=== PATIENT | female | born 1970 | race Caucasian/White ===

== ENCOUNTER → 2017-01-19 | Outpatient (CLI) | payer BC ==
--- NOTE | 2017-01-20 07:35 | MAMMOGRAPHY REPORT ---
BILATERAL DIGITAL SCREENING MAMMOGRAM TOMOSYNTHESIS WITH CAD: 01/19/2017 CLINICAL HISTORY: Routine screening. Patient has no complaints. TECHNIQUE: Breast tomosynthesis in addition to standard 2D mammography was performed. Current study was also evaluated with a Computer Aided Detection (CAD) system. COMPARISON: Comparison is made to exams dated: 11/13/2014 mammogram, 01/17/2016 mammogram, 01/04/2012 ultrasound, 11/10/2013 mammogram, 07/02/2011 mammogram, and 07/02/2011 ultrasound - [facility]. BREAST COMPOSITION: The tissue of both breasts is heterogeneously dense, which may obscure small mas ses. FINDINGS: The glandular pattern is similar to prior mammograms, with stable asymmetries bilaterally. No new suspicious mass, architectural distortion or cluster of microcalcifications is seen. IMPRESSION: ACR BI-RADS CATEGORY 1: NEGATIVE There is no mammographic evidence of malignancy. A 1 year screening mammogram is recommended. The pa tient will receive written notification of the results. Approximately 10% of breast cancers are not detected with mammography. A negative mammographic report should not delay biopsy if a clinically suggestive mass is present. Carol Zurita M.D. ay/:01/19/2017 17:18:04 Delivery Stock Clerk: Savannah RAMOSR, M, [facility] letter sent: Normal 1/2 BI-RADS Code: ACR BI-RADS Category 1: Negative
== END | disposition home or self-care (01) ==
LOC: C.MAMM 08:28
PROVIDERS: ATTEND Obstetrics & Gynecology
DX: Z12.31 Encounter for screening mammogram for malignant neoplasm of breast (principal)

== ENCOUNTER 2021-11-13 09:42 | Inpatient (IN) ==
[2021-11-13] MEDS ORDERED: ONDANSETRON INJ 2 MG/ML 2 ML VIAL IV STA ×2 (10:30→10:56)
--- NOTE | 2021-11-13 10:40 | Emergency Department Note ---
Impression & Plan SBO (small bowel obstruction), Abdominal pain, Nausea and vomiting ED Provider Note NAME: JOSE LAMAS AGE: 51 SEX: F : 1970 ARRIVES VIA: Walk-In INFORMANT: Patient, ED PROVIDER(S): Tyler Roberts MD Chief Complaint: Abdominal pain, nausea vomiting HPI: Patient presents due to concern for abdominal pain with associated nausea and vomiting that began last evening. Patient denies any chest pains or shortness of breath. No recent sick contacts or travel. Patient does have COVID but she has been tested several times in the last week but without any symptoms and the patient has been negative. Patient denies any blood in the vomit. Patient Nuys any alcohol or tobacco use. The patient's had a recent bowel movement denies any dysuria or blood in the stool. No hematuria no history of kidney stones. Patient denies any falls or trauma. Patient did try some Tylenol as well as some Zofran and had some mild improvement in symptoms. ROS: See HPI for pertinent positives and negatives. A total of 10 systems were reviewed and otherwise negative. Past medical history: See below Surgical history: See below Social history: See below Physical Exam: GENERAL: NAD, wearing a mask, non-toxic. EYE EXAM: Normal conjunctiva. PERRL, no anisocoria and EOM's grossly intact w/o pain. NECK: Supple, no nuchal rigidity, no adenopathy, non-tender. No signs of meningismus. FROM of the neck with good chin to chest and neck extension. No stridor. LUNGS: Clear to auscultation. Normal chest wall mechanics. HEART: NSR, no MRG. ABDOMEN: Abdomen soft, upper abdominal pain without lower abdominal pain, neg ative obturators and psoas, normo-active bowel sounds, no masses, no rebound or guarding. BACK: No CVA TTP. SKIN: No rashes and no bruising. UPPER EXTREMITIES: Upper extremities are grossly normal. LOWER EXTREMITIES: Grossly normal, no edema. NEURO EXAM: A&O x3, cranial nerves II-XII grossly intact, normal speech, moves all 4 extremities. Differential diagnoses: Appendicitis, ovarian cyst, ovarian torsion, ectopic , TOA, PID, infections, diverticulitis, UTI, obstruction, mesenteric i schemia, aortic pathology, inflammatory bowel disease, renal colic, PUD, pancreatitis, biliary pathology, hernia, volvulus, constipation, as well as other pathologies. Course: Patient was seen and evaluated the bedside. Full history physical exam was performed. Imaging Studies: See Below Cardiac monitoring: An order was placed for continuous cardiac monitoring. The monitor shows a rate of 67 with sinus rhythm. MDM: Patient presents due to concern for abdominal pain with associated nausea and vomiting. The patient did have blood work completed. No prior history of abdominal surgeries. The patient was initially given antiemetics and IV fluids along with a screening x-ray. I did discuss that if her blood work looked concerning or her x-ray or she did not have improvement in symptoms we talked about obtaining a CAT scan. The patient is comfortable with this plan of care. Patient has a normal white count H&H and platelet count. The patient's kidney function is unremarkable. Mild hypercalcemia 10.2. Mild hypokalemia 3.3. Urinalysis did not show evidence of obvious infection but ketones are present consistent with the patient's likely dehydration. COVID-negative. Patient's plain film shows no acute process within the chest. The patient does have nondilated gas-filled loops of small bowel which contain small fluid levels. This may be seen in mild gastroenteritis versus ileus or even a partial small bowel obstruction. Given the patient's lack of any prior surgical history I did discuss these findings. The patient was trialed on additional medications but did not have improvement and thus a CT of the abdomen pelvis was obtained. CT abdomen pelvis did show c oncern for small bowel obstruction. I did speak the on-call general surgeon Dr. Ricks and the patient was admitted to the surgical service. Do not believe the patient requires an NG tube at this time as the patient has had no further vomiting since presenting here in the emergency department. Past Med/Surg History Medical History Acute medial meniscus tear of left knee IBS (irritable bowel syndrome) Patellofemoral arthralgia of left knee Family History Mother Breast cancer Aunt Breast cancer Aunt Breast cancer Social History Smoking Status: Never smoker Feels Safe at Home: Yes Allergies Allergies Allergy/AdvReac Type Severity Reaction Status Date / Time Sulfa (Sulfonamide Allergy Mild rash Verified 04/29/21 16:04 Antibiotics) Home Meds Home Medications Medication Instructions Recorded Confirmed multivitamin 1 tab PO DAILY 11/05/18 04/29/21 omeprazole 20 mg capsule,delayed 20 mg PO DAILY 04/29/21 04/29/21 release Results & Data (ED) Vital Signs Vital Signs - 24 hr 11/13/21 10:13 11/13/21 12:55 11/13/21 15:21 Temperature 36.3 C L Temperature Source Temporal Artery Scan Pulse Rate 68 Pulse Rate [Right Finger] 62 Respiratory Rate 20 16 20 Respiratory Effort / Characteristics Non-Labored Non-Labored Respiratory Depth Normal Normal Respiratory Pattern Regular Blood Pressure 125/85 Blood Pressure [Left Arm] 112/66 Blood Pressure Mean 98 Blood Pressure Mean [Left Arm] 81 Pulse Oximetry 100 99 98 Oxygen Delivery Method Room Air Room Air Room Air Sepsis Recent Fever Within 48 Hours No Sepsis New/Unexplained Change in Mental Status N/A Sepsis Action Taken by Nursing No Action Required Home Medications Current Medication List: was personally reviewed by me Laboratory Data Attestation: I reviewed the patient's lab results. Result diagrams: 11/13/21 10:55 11/13/21 10:55 Lab Results 11/13/21 11/13/21 11/13/21 Range/Units 10:55 10:55 10:55 WBC 8.22 (4.8-10.8) K/ul RBC 4.75 (3.93-5.22) M/uL Hgb 14.5 (12.0-16.0) g/dl Hct 40.9 (34.1-44.9) % MCV 86.1 (80.0-100.0) fL MCH 30.5 (25.0-34.0) pg MCHC 35.5 (32.0-36.0) g/dL RDW Std Deviation 38.3 (36.4-46.3) fL RDW Coeff of Esperanza 12.3 (11.5-14.5) % Plt Count 238 (130-400) K/uL MPV 9.3 L (9.4-12.3) fL Immature Gran % (Auto) 0.6 % Neut % (Auto) 91.2 % Lymph % (Auto) 5.4 % [place] % (Auto) 2.6 % Eos % (Auto) 0.0 % Baso % (Auto) 0.2 % Neut # (Auto) 7.50 H (1.4-6.5) K/uL Lymph # (Auto) 0.44 L (1.2-3.4) K/uL [place] # (Auto) 0.21 L (0.24-0.82) K/uL Eos # (Auto) 0.00 (0-0.50) K/uL Baso # (Auto) 0.02 (0-0.2) K/uL Immature Gran # (Auto) 0.05 H (0.00-0.02) K/uL Sodium 137 (136-145) mmol/L Potassium 3.3 L (3.5-5.1) mmol/L Chloride 101 (98-107) mmol/L Carbon Dioxide 24 (21-32) mmol/L Anion Gap 12 H (3-11) BUN 10 (6-23) mg/dl Creatinine 0.80 (0.6-1.2) mg/dl Est Cr Clr Drug Dosing 77.3 ml/min Est GFR ( Amer) 98.2 ml/min Est GFR (Non-Af Amer) 84.8 ml/min BUN/Creatinine Ratio 12.5 (10-20) Glucose 128 H (70-99(Fasting)) mg/dl Calcium 10.2 H (8.5-10.1) mg/dl Total Bilirubin 0.9 (0.2-1.0) mg/dl AST 17 (13-39) U/L ALT 10 (7-52) U/L Alkaline Phosphatase 82 (34-104) U/L Total Protein 8.7 H (6.0-8.3) gm/dl Albumin 4.8 (3.4-5.0) gm/dl Globulin 3.9 (2.5-4.0) gm/dl Albumin/Globulin Ratio 1.2 (0.9-2) Lipase 39 (11-82) U/L Urine Color Yellow Urine Appearance Cloudy A (Clear) Urine pH >= 9.0 H (4.5-7.5) Ur Specific [place] 1.030 (1.000-1.030) Urine Protein 1+ H (Negative) Urine Glucose (UA) Negative (Negative) Urine Ketones 3+ H (Negative) Urine Blood Negative (Negative) Urine Nitrite Negative (Negative) Urine Bilirubin Negative (Negative) Urine Urobilinogen Negative (Negative) Ur Leukocyte Esterase Negative (Negative) Urine WBC (Auto) 1-5 (0-5) /hpf Urine RBC (Auto) 0-4 (0-4) /hpf U Hyaline Cast (Auto) 10-30 H (0-5) /lpf U Epithel Cells (Auto) >30 H (0-5) /lpf Urine Bacteria (Auto) Negative (Negative) Ur Renal Epithelial Cell 0-5 (0-5) /lpf SARS-CoV-2, RNA, NAAT (NEGATIVE) 11/13/21 Range/Units 12:23 WBC (4.8-10.8) K/ul RBC (3.93-5.22) M/uL Hgb (12.0-16.0) g/dl Hct (34.1-44.9) % MCV (80.0-100.0) fL MCH (25.0-34.0) pg MCHC (32.0-36.0) g/dL RDW Std Deviation (36.4-46.3) fL RDW Coeff of Esperanza (11.5-14.5) % Plt Count (130-400) K/uL MPV (9.4-12.3) fL Immature Gran % (Auto) % Neut % (Auto) % Lymph % (Auto) % [place] % (Auto) % Eos % (Auto) % Baso % (Auto) % Neut # (Auto) (1.4-6.5) K/uL Lymph # (Auto) (1.2-3.4) K/uL [place] # (Auto) (0.24-0.82) K/uL Eos # (Auto) (0-0.50) K/uL Baso # (Auto) (0-0.2) K/uL Immature Gran # (Auto) (0.00-0.02) K/uL Sodium (136-145) mmol/L Potassium (3.5-5.1) mmol/L Chloride (98-107) mmol/L Carbon Dioxide (21-32) mmol/L Anion Gap (3-11) BUN (6-23) mg/dl Creatinine (0.6-1.2) mg/dl Est Cr Clr Drug Dosing ml/min Est GFR ( Amer) ml/min Est GFR (Non-Af Amer) ml/min BUN/Creatinine Ratio (10-20) Glucose (70-99(Fasting)) mg/dl Calcium (8.5-10.1) mg/dl Total Bilirubin (0.2-1.0) mg/dl AST (13-39) U/L ALT (7-52) U/L Alkaline Phosphatase (34-104) U/L Total Protein (6.0-8.3) gm/dl Albumin (3.4-5.0) gm/dl Globulin (2.5-4.0) gm/dl Albumin/Globulin Ratio (0.9-2) Lipase (11-82) U/L Urine Color Urine Appearance (Clear) Urine pH (4.5-7.5) Ur Specific [place] (1.000-1.030) Urine Protein (Negative) Urine Glucose (UA) (Negative) Urine Ketones (Negative) Urine Blood (Negative) Urine Nitrite (Negative) Urine Bilirubin (Negative) Urine Urobilinogen (Negative) Ur Leukocyte Esterase (Negative) Urine WBC (Auto) (0-5) /hpf Urine RBC (Auto) (0-4) /hpf U Hyaline Cast (Auto) (0-5) /lpf U Epithel Cells (Auto) (0-5) /lpf Urine Bacteria (Auto) (Negative) Ur Renal Epithelial Cell (0-5) /lpf SARS-CoV-2, RNA, NAAT NEGATIVE (NEGATIVE) Administered Medications Discontinued Medications Dicyclomine HCl (Dicyclomine Hcl 10 Mg/Ml 2 Ml Amp/Vial) 20 mg IM NOW ONE Stop: 11/13/21 12:01 Last Admin: 11/13/21 12:18 Dose: 20 mg Documented By: ANN Diphenhydramine HCl (Diphenhydramine 50 Mg/Ml Vial) 25 mg IV NOW STA Stop: 11/13/21 13:43 Last Admin: 11/13/21 14:07 Dose: 25 mg Documented By: DEXTER Sodium Chloride (Nss 1000ml) 1,000 mls @ 999 mls/hr IV .Q1H1M STA Stop: 11/13/21 11:56 Last Infusion: 11/13/21 12:26 Dose: 0 mls/hr Documented By: Admin: 11/13/21 11:14 Dose: 999 mls/hr Documented By: JACQUI Famotidine (Pepcid 20mg Iv Push) 20 mg in 5 mls @ 2.5 mls/min IV NOW STA Stop: 11/13/21 12:01 Last Admin: 11/13/21 12:18 Dose: 2.5 mls/min Documented By: ANN Sodium Chloride (Nss 1000ml) 1,000 mls @ 999 mls/hr IV .Q1H1M ONE Stop: 11/13/21 13:00 Last Infusion: 11/13/21 13:21 Dose: 0 mls/hr Documented By: Admin: 11/13/21 12:19 Dose: 999 mls/hr Documented By: ANN Prochlorperazine (Compazine) 2 mls @ 1 mls/min IV ONE ONE Stop: 11/13/21 13:43 Last Admin: 11/13/21 14:07 Dose: 1 mls/min Documented By: DEXTER Ioversol (Ioversol 350 Mg 100ml Prefilled Syringe) 93 ml IV ONCE ONE Stop: 11/13/21 14:31 Last Admin: 11/13/21 14:31 Dose: 93 ml Documented By: ISABEL Ketorolac Tromethamine (Ketorolac Tromethamine 15 Mg/Ml Vial) 10 mg IV NOW STA Stop: 11/13/21 10:57 Last Admin: 11/13/21 11:10 Dose: 10 mg Documented By: JACQUI Morphine Sulfate (Morphine Sulfate 4 Mg/Ml 1 Ml Carp\Vial) 4 mg IV NOW STA Stop: 11/13/21 15:38 Last Admin: 11/13/21 15:42 Dose: 4 mg Documented By: LAURY Ondansetron HCl (Ondansetron Inj 2 Mg/Ml 2 Ml Vial) 4 mg IV NOW STA Stop: 11/13/21 10:31 Last Admin: 11/13/21 11:37 Dose: Not Given Documented By: JACQUI Ondansetron HCl (Ondansetron Inj 2 Mg/Ml 2 Ml Vial) 4 mg IV NOW STA Stop: 11/13/21 10:57 Last Admin: 11/13/21 11:10 Dose: 4 mg Documented By: JACQUI Imaging Data Radiologist's Impression: Chest/Abdomen X-ray 11/13/21 10:56 CHEST AND ABDOMEN 2 VIEWS HISTORY: upper ab pain, n/v COMPARISON: None. FINDINGS: The lungs are clear. The heart is normal in size. No pleural effusions. No pneumothorax. There are few nondilated gas-filled loops of small bowel within the left side the abdomen which contain small fluid levels. There are 2 stones within the upper pole the left kidney with the largest measuring 3 mm. Small to moderate amount of well-formed stool seen within the colon. No pneumoperitoneum. No pneumatosis. IMPRESSION: 1. No acute process within the chest. 2. A few nondilated gas-filled loops of small bowel within the left side of the abdomen which contain small fluid levels. This can be seen in the setting of a mild gastroenteritis or ileus. A partial small bowel obstruction is considered less likely but not entirely excluded. 3. Left-sided nephrolithiasis. ACT 112: Negative or not required by law. Electronically signed by: Chaim Cotter M.D. 11/13/2021 1:01 PM Abdomen/Pelvis CT 11/13/21 14:08 CT SCAN OF THE ABDOMEN AND PELVIS WITH IV CONTRAST CLINICAL HISTORY: Upper abdominal pain COMPARISON STUDY: Abdominal radiographs dated 11/13/2021. TECHNIQUE: Following the IV administration of 93 cc of Optiray 350, CT scan of the abdomen and pelvis is performed from the lung bases to the proximal femora. Images are reviewed in the axial, sagittal, and coronal planes. IV contrast was administered without complication. A dose lowering technique was utilized adhering to the principles of ALARA. CT DOSE: 336.52 mGycm FINDINGS: Lung bases: The heart is normal in size and without pericardial effusion. The lung bases are clear. Liver: The contrast-enhanced liver is normal in size, contour, and attenuation. There is no intrahepatic biliary ductal dilatation. The hepatic veins and portal veins are patent. Gallbladder: Unremarkable. Spleen: Normal in size and attenuation. Pancreas: Unremarkable. Adrenal glands: Unremarkable. Kidneys: The contrast enhanced kidneys are normal in size and without hydronephrosis. The kidneys enhance symmetrically. There are at least 2 nonobstructing left renal calculi which measure up to 5 mm. Bilateral renal cysts measure up to 1.8 cm. Additional subcentimeter cortical hypodensities also likely represent cysts but are too small for definitive characterization. Abdominal vasculature: The abdominal aorta is normal in course and caliber. Bowel: The proximal small bowel loops are distended and fluid-filled measuring up to 3.0 cm diameter. There is a focally thick-walled bowel loop in the central pelvis on image #274. There is a transition point just proximal to this loop on image #240, the appearance is consistent with a small bowel obstruction. The distal small bowel is decompressed. There is trace interloop fluid. No pneuma tosis intestinalis or portal venous gas is seen. Fecal retention is noted throughout the colon. The appendix is well-visualized and normal. Peritoneum: There is no intraperitoneal free air or abdominal ascites. Lymphadenopathy: None. Pelvic viscera: The bladder is partially decompressed and appears circumferentially thick walled. The uterus and adnexa are normal as visualized. Follicles are present in the ovaries. There is a moderate volume of free fluid in cul-de-sac. Skeletal structures: No lytic or blastic lesions are seen. Degenerative change is noted in the sacroiliac joints. IMPRESSION: 1. Findings are consistent with a small bowel obstruction. A transition point is identified involving a loop of small bowel in the right lower quadrant. 2. There is a short segment of thick-walled small bowel seen below the transition point. It is unclear if the inflamed small bowel loop represents the cause of obstruction, or if this is related to adhesions. 3. There is trace interloop fluid and a moderate volume of free fluid in the pelvis. 4. No intraperitoneal free air seen. There is no pneumatosis intestinalis or portal venous gas. 5. The bladder wall appears circumferentially thickened. Correlate with urinalys is. 6. Left-sided nephrolithiasis. 7. Additional findings as above. ACT 112: Negative or not required by law. Electronically signed by: Pepe Perez M.D. 11/13/2021 2:48 PM Discharge Plan Visit Data Chief Complaint: Vomiting Stated Complaint: VOMITING,ABD PAIN ED Provider: Tyler Roberts Discharge Problem: SBO (small bowel obstruction), Abdominal pain, Nausea and vomiting Patient Disposition: Admitted As Inpatient Forms [facility] Prescriptions Prescriptions: No Action omeprazole 20 mg capsule,delayed release(DR/EC) 20 mg PO DAILY multivitamin tablet 1 tab PO DAILY Referrals Referrals: Lucy Webb DO [Primary Care Provider] -
[2021-11-13] MEDS ORDERED: SODIUM CHLORIDE 0.9% 1000ML 1,000 ML IV STA (10:56)
[2021-11-13] MEDS ORDERED: KETOROLAC TROMETHAMINE 15 MG/ML VIAL IV STA (10:56)
[2021-11-13 11:11] LABS: Hematocrit (blood only) 40.9 % (34.1-44.9); Hemoglobin 14.5 g/dl (12.0-16.0); Mean Corpuscular Hemoglobin 30.5 pg (25.0-34.0); Mean Corpuscular Hgb Conc 35.5 g/dL (32.0-36.0); Mean Corpuscular Volume 86.1 fL (80.0-100.0); Mean Platelet Volume 9.3 fL (9.4-12.3); Platelet Count 238 K/uL (130-400); RDW Coefficient of Variation 12.3 % (11.5-14.5); RDW Standard Deviation 38.3 fL (36.4-46.3); Red Blood Count 4.75 M/uL (3.93-5.22); White Blood Count 8.22 K/ul (4.8-10.8)
[2021-11-13 11:32] LABS: Basophils # (auto) 0.02 K/uL (0-0.2); Basophils % (auto) 0.2 %; Immature Granulocytes # (auto) 0.05 K/uL (0.00-0.02); Immature Granulocytes % (auto) 0.6 %; Lymphocytes # (auto) 0.44 K/uL (1.2-3.4); Lymphocytes % (auto) 5.4 %; Monocytes # (auto) 0.21 K/uL (0.24-0.82); Monocytes % (auto) 2.6 %; Neutrophils % (auto) 91.2 %
[2021-11-13 11:34] LABS: Albumin Globulin Ratio 1.2 (0.9-2); Albumin Level 4.8 gm/dl (3.4-5.0); BUN Creatinine Ratio 12.5 (10-20); Bilirubin,Total 0.9 mg/dl (0.2-1.0); Calcium 10.2 mg/dl (8.5-10.1); Creatinine Clr Calc Pharmacy 77.3 ml/min; Est GFR (African American) 98.2 ml/min; Est GFR (Non-African American) 84.8 ml/min; Globulin 3.9 gm/dl (2.5-4.0); Potassium 3.3 mmol/L (3.5-5.1); Total Protein 8.7 gm/dl (6.0-8.3)
[2021-11-13 11:54] LABS: Appearance Urine Cloudy (Clear); Bacteria Urine Automated Negative (Negative); Bilirubin Urine Negative (Negative); Blood Urine Negative (Negative); Color Urine Yellow; Epithelial Cell Urine Auto >30 /lpf (0-5); Glucose Urine UA Negative (Negative); Ketones Urine 3+ (Negative); Leukocyte Esterase Urine Negative (Negative); Nitrite Urine Negative (Negative); RBC Urine Automated 0-4 /hpf (0-4); Urobilinogen Urine Negative (Negative); pH Urine >= 9.0 (4.5-7.5)
[2021-11-13 11:55] LABS: Protein Urine 1+ (Negative)
[2021-11-13] MEDS ORDERED: DICYCLOMINE HCL 10 MG/ML 2 ML AMP/VIAL IM ONE (12:00)
[2021-11-13] MEDS ORDERED: SODIUM CHLORIDE 0.9% 1000ML 1,000 ML IV ONE (12:00)
[2021-11-13] MEDS ORDERED: FAMOTIDINE 20MG IV PUSH 20 MG/5 ML SYR IV STA (12:00)
[2021-11-13 12:33] LABS: Renal Epithelial Cells Urine 0-5 /lpf (0-5)
--- NOTE | 2021-11-13 13:02 | XRay Report ---
CHEST AND ABDOMEN 2 VIEWS HISTORY: upper ab pain, n/v COMPARISON: None. FINDINGS: The lungs are clear. The heart is normal in size. No pleural effusions. No pneumothorax. Th ere are few nondilated gas-filled loops of small bowel within the left side the abdomen which contain small fluid levels. There are 2 stones within the upper pole the left kidney with the largest measur ing 3 mm. Small to moderate amount of well-formed stool seen within the colon. No pneumoperitoneum. N o pneumatosis. IMPRESSION: 1. No acute process within the chest. 2. A few nondilated gas-filled loops of small bowel within the left side of the abdomen which contain small fluid levels. This can be seen in the setting of a mild gastroenteritis or ileus. A partial sm all bowel obstruction is considered less likely but not entirely excluded. 3. Left-sided nephrolithiasis. ACT 112: Negative or not required by law. Electronically signed by: Chaim Cotter M.D. 11/13/2021 1:01 PM
[2021-11-13] MEDS ORDERED: PROCHLORPERAZINE 2 ML IV ONE (13:42)
[2021-11-13] MEDS ORDERED: diphenhydrAMINE 50 MG/ML VIAL IV STA (13:42)
[2021-11-13] MEDS ORDERED: IOVERSOL 350 MG 100mL Prefilled Syringe IV ONE (14:30)
--- NOTE | 2021-11-13 14:49 | CT Scan Report ---
CT SCAN OF THE ABDOMEN AND PELVIS WITH IV CONTRAST CLINICAL HISTORY: Upper abdominal pain COMPARISON STUDY: Abdominal radiographs dated 11/13/2021. TECHNIQUE: Following the IV administration of 93 cc of Optiray 350, CT scan of the abdomen and pelvi s is performed from the lung bases to the proximal femora. Images are reviewed in the axial, sagittal , and coronal planes. IV contrast was administered without complication. A dose lowering technique wa s utilized adhering to the principles of ALARA. CT DOSE: 336.52 mGycm FINDINGS: Lung bases: The heart is normal in size and without pericardial effusion. The lung bases are clear. Liver: The contrast-enhanced liver is normal in size, contour, and attenuation. There is no intrahepa tic biliary ductal dilatation. The hepatic veins and portal veins are patent. Gallbladder: Unremarkable. Spleen: Normal in size and attenuation. Pancreas: Unremarkable. Adrenal glands: Unremarkable. Kidneys: The contrast enhanced kidneys are normal in size and without hydronephrosis. The kidneys enh ance symmetrically. There are at least 2 nonobstructing left renal calculi which measure up to 5 mm. Bilateral renal cysts measure up to 1.8 cm. Additional subcentimeter cortical hypodensities also like ly represent cysts but are too small for definitive characterization. Abdominal vasculature: The abdominal aorta is normal in course and caliber. Bowel: The proximal small bowel loops are distended and fluid-filled measuring up to 3.0 cm diameter. There is a focally thick-walled bowel loop in the central pelvis on image #274. There is a transitio n point just proximal to this loop on image #240, the appearance is consistent with a small bowel obs truction. The distal small bowel is decompressed. There is trace interloop fluid. No pneumatosis inte stinalis or portal venous gas is seen. Fecal retention is noted throughout the colon. The appendix is well-visualized and normal. Peritoneum: There is no intraperitoneal free air or abdominal ascites. Lymphadenopathy: None. Pelvic viscera: The bladder is partially decompressed and appears circumferentially thick walled. The uterus and adnexa are normal as visualized. Follicles are present in the ovaries. There is a moderat e volume of free fluid in cul-de-sac. Skeletal structures: No lytic or blastic lesions are seen. Degenerative change is noted in the sacroi liac joints. IMPRESSION: 1. Findings are consistent with a small bowel obstruction. A transition point is identified involving a loop of small bowel in the right lower quadrant. 2. There is a short segment of thick-walled small bowel seen below the transition point. It is unclea r if the inflamed small bowel loop represents the cause of obstruction, or if this is related to adhe sions. 3. There is trace interloop fluid and a moderate volume of free fluid in the pelvis. 4. No intraperitoneal free air seen. There is no pneumatosis intestinalis or portal venous gas. 5. The bladder wall appears circumferentially thickened. Correlate with urinalysis. 6. Left-sided nephrolithiasis. 7. Additional findings as above. ACT 112: Negative or not required by law. Electronically signed by: Pepe Perez M.D. 11/13/2021 2:48 PM
[2021-11-13] MEDS ORDERED: MoRPHine SULFATE 4 MG/ML 1 ML CARP\\VIAL IV STA (15:37)
--- NOTE | 2021-11-13 17:16 | History & Physical Report ---
Date of Service November 13, 2021 Assessment & Plan (1) SBO (small bowel obstruction): (2) Abdominal pain: (3) Nausea and vomiting: Plan 51-year-old female presented to the emergency room with onset of abdominal pain that started last evening around 6 PM with associated chills, nausea, and [address] scan of the abdomen and pelvis showing signs of a small bowel obstruction with a short segment of thick-walled small bowel distal to a transition zone. Patient has never had any history of abdominal surgeries. Etiology of the small bowel obstruction could be infectious/inflammatory versus possible scar tissue even though she has never had any prior surgery. She is currently hemodynamically stable, no leukocytosis, no peritonitis on exam. Plan: Dr. Ricks discussed CT scan findings with patient and her . Definitive etiology of her small bowel obstruction is unknown but it looks like she may have an infectious inflammatory process as possible cause of her small bowel obstruction based on CT scan findings. As her exam is relatively benign other than some tenderness in the upper abdomen with no peritonitis would suggest conservative management with close observation with bowel rest, IV fluids, IV pain medication as needed, IV antiemetics as needed. Will keep n.p.o. Repeat a.m. labs Could consider a small bowel follow-through versus MR enterography for further evaluation pending clinical improvement. Patient was seen and examined in collaboration with Dr. Ricks. Please see addendum for further recommendations and plan. History of Present Illness Chief Complaint: Abdominal pain with nausea and vomiting Primary Care Provider: Lucy Webb DO Amaro is a pleasant 51-year-old female who presented to the emergency room due to abdominal pain that started at 6 PM last evening with associated nausea and 4 episodes of vomiting. She did have associated chills but no documented fever. She states she was feeling well prior to this episode of pain. Never had this type of pain before. Pain seemed to escalate in severity and became severe which is why she presented to the emergency room. She states she does have a history of IBS diarrhea predominantly. Mostly lower abdominal pain associated with her IBS and this feels different. She denies of any prior abdominal surgeries, any trauma to her abdomen, any known sick contacts other than her daughter did have COVID at the beginning of this month but she has been tested and has been negative at least 5 times. No known family history of colon cancer or inflammatory bowel disease. She did have a screening colonoscopy about a year ago which was unremarkable. She denies of any blood in her stools, blood in the urine or difficulty urinating. Last bowel movement was about 2 days ago and normal for her. She is currently passing gas. Allergies Allergy/AdvReac Type Severity Reaction Status Date / Time Sulfa (Sulfonamide Allergy Mild rash Verified 04/29/21 16:04 Antibiotics) Home Medications Medication Instructions Recorded Confirmed Type multivitamin 1 tab PO DAILY 11/05/18 11/13/21 History omeprazole 20 mg capsule,delayed 20 mg PO DAILY 04/29/21 11/13/21 History release Past Med/Surg History Medical History Acute medial meniscus tear of left knee IBS (irritable bowel syndrome) Patellofemoral arthralgia of left knee Family History Mother Breast cancer Aunt Breast cancer Aunt Breast cancer Social History Smoking Status: Never smoker Second Hand Exposure: No; Do You Dip or Chew Tobacco: No; Tobacco Cessation Education Requested by Patient: No Hx Alcohol Use: Yes Hx Substance Use: No Preferred Language: Hebrew Communication Ability: Effective 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 Beliefs That Will Affect Care: None Current Living Situation: Spouse and Family Other Information That Helps Us Care for You: No Feels Safe at Home: Yes Safety Concerns: Feels Safe At This Time Assistive Devices: None Review of Systems Review of Systems: All systems reviewed & are unremarkable except as noted in HPI & below Physical Exam Constitutional: WD/WN, vitals as above cooperative and comfortable; no acute distress and not ill appearing Neck: normal visual inspection and trachea midline Respiratory: normal respiratory effort, lungs clear to auscultation Cardiovascular: RRR, no murmur, no edema Gastrointestinal (Abdomen): Inspection/Auscultation: abdomen normal to inspection and + hypoactive bowel sounds (but present in LLQ); abdomen not distended, + abnormal bowel sounds, no visible herniation, no abdominal surgical scar and no abdominal surgical incision Percussion/Palpation: + abdomen tender (Upper mid abdomen) and abdomen soft; no guarding and abdomen not rigid No peritonitis, rigidity, or rebound Skin: no rashes, warm and dry Psychiatric: A+Ox3, euthymic affect Results & Data Results & Data ([facility]) Vital Signs (Past 12 Hours) Vital Signs Temp Pulse Pulse Resp BP BP Pulse Ox 11/13/21 15:21 20 98 11/13/21 12:55 62 16 112/66 99 11/13/21 10:13 36.3 C L 68 20 125/85 100 O2 Del Method 11/13/21 15:21 Room Air 11/13/21 12:55 Room Air 11/13/21 10:13 Room Air Laboratory Results 11/13/21 11/13/21 11/13/21 Range/Units 12:23 10:55 10:55 WBC (4.8-10.8) K/ul RBC (3.93-5.22) M/uL Hgb (12.0-16.0) g/dl Hct (34.1-44.9) % MCV (80.0-100.0) fL MCH (25.0-34.0) pg MCHC (32.0-36.0) g/dL RDW Std Deviation (36.4-46.3) fL RDW Coeff of Esperanza (11.5-14.5) % Plt Count (130-400) K/uL MPV (9.4-12.3) fL Immature Gran % (Auto) % Neut % (Auto) % Lymph % (Auto) % Mills % (Auto) % Eos % (Auto) % Baso % (Auto) % Neut # (Auto) (1.4-6.5) K/uL Lymph # (Auto) (1.2-3.4) K/uL Mills # (Auto) (0.24-0.82) K/uL Eos # (Auto) (0-0.50) K/uL Baso # (Auto) (0-0.2) K/uL Immature Gran # (Auto) (0.00-0.02) K/uL Sodium 137 (136-145) mmol/L Potassium 3.3 L (3.5-5.1) mmol/L Chloride 101 (98-107) mmol/L Carbon Dioxide 24 (21-32) mmol/L Anion Gap 12 H (3-11) BUN 10 (6-23) mg/dl Creatinine 0.80 (0.6-1.2) mg/dl Est Cr Clr Drug Dosing 77.3 ml/min Est GFR ( Amer) 98.2 ml/min Est GFR (Non-Af Amer) 84.8 ml/min BUN/Creatinine Ratio 12.5 (10-20) Glucose 128 H (70-99(Fasting)) mg/dl Calcium 10.2 H (8.5-10.1) mg/dl Total Bilirubin 0.9 (0.2-1.0) mg/dl AST 17 (13-39) U/L ALT 10 (7-52) U/L Alkaline Phosphatase 82 (34-104) U/L Total Protein 8.7 H (6.0-8.3) gm/dl Albumin 4.8 (3.4-5.0) gm/dl Globulin 3.9 (2.5-4.0) gm/dl Albumin/Globulin Ratio 1.2 (0.9-2) Lipase 39 (11-82) U/L Urine Color Yellow Urine Appearance Cloudy A (Clear) Urine pH >= 9.0 H (4.5-7.5) Ur Specific Lyons 1.030 (1.000-1.030) Urine Protein 1+ H (Negative) Urine Glucose (UA) Negative (Negative) Urine Ketones 3+ H (Negative) Urine Blood Negative (Negative) Urine Nitrite Negative (Negative) Urine Bilirubin Negative (Negative) Urine Urobilinogen Negative (Negative) Ur Leukocyte Esterase Negative (Negative) Urine WBC (Auto) 1-5 (0-5) /hpf Urine RBC (Auto) 0-4 (0-4) /hpf U Hyaline Cast (Auto) 10-30 H (0-5) /lpf U Epithel Cells (Auto) >30 H (0-5) /lpf Urine Bacteria (Auto) Negative (Negative) Ur Renal Epithelial Cell 0-5 (0-5) /lpf SARS-CoV-2, RNA, NAAT NEGATIVE (NEGATIVE) 11/13/21 Range/Units 10:55 WBC 8.22 (4.8-10.8) K/ul RBC 4.75 (3.93-5.22) M/uL Hgb 14.5 (12.0-16.0) g/dl Hct 40.9 (34.1-44.9) % MCV 86.1 (80.0-100.0) fL MCH 30.5 (25.0-34.0) pg MCHC 35.5 (32.0-36.0) g/dL RDW Std Deviation 38.3 (36.4-46.3) fL RDW Coeff of Esperanza 12.3 (11.5-14.5) % Plt Count 238 (130-400) K/uL MPV 9.3 L (9.4-12.3) fL Immature Gran % (Auto) 0.6 % Neut % (Auto) 91.2 % Lymph % (Auto) 5.4 % Mills % (Auto) 2.6 % Eos % (Auto) 0.0 % Baso % (Auto) 0.2 % Neut # (Auto) 7.50 H (1.4-6.5) K/uL Lymph # (Auto) 0.44 L (1.2-3.4) K/uL Mills # (Auto) 0.21 L (0.24-0.82) K/uL Eos # (Auto) 0.00 (0-0.50) K/uL Baso # (Auto) 0.02 (0-0.2) K/uL Immature Gran # (Auto) 0.05 H (0.00-0.02) K/uL Sodium (136-145) mmol/L Potassium (3.5-5.1) mmol/L Chloride (98-107) mmol/L Carbon Dioxide (21-32) mmol/L Anion Gap (3-11) BUN (6-23) mg/dl Creatinine (0.6-1.2) mg/dl Est Cr Clr Drug Dosing ml/min Est GFR ( Amer) ml/min Est GFR (Non-Af Amer) ml/min BUN/Creatinine Ratio (10-20) Glucose (70-99(Fasting)) mg/dl Calcium (8.5-10.1) mg/dl Total Bilirubin (0.2-1.0) mg/dl AST (13-39) U/L ALT (7-52) U/L Alkaline Phosphatase (34-104) U/L Total Protein (6.0-8.3) gm/dl Albumin (3.4-5.0) gm/dl Globulin (2.5-4.0) gm/dl Albumin/Globulin Ratio (0.9-2) Lipase (11-82) U/L Urine Color Urine Appearance (Clear) Urine pH (4.5-7.5) Ur Specific Lyons (1.000-1.030) Urine Protein (Negative) Urine Glucose (UA) (Negative) Urine Ketones (Negative) Urine Blood (Negative) Urine Nitrite (Negative) Urine Bilirubin (Negative) Urine Urobilinogen (Negative) Ur Leukocyte Esterase (Negative) Urine WBC (Auto) (0-5) /hpf Urine RBC (Auto) (0-4) /hpf U Hyaline Cast (Auto) (0-5) /lpf U Epithel Cells (Auto) (0-5) /lpf Urine Bacteria (Auto) (Negative) Ur Renal Epithelial Cell (0-5) /lpf SARS-CoV-2, RNA, NAAT (NEGATIVE) Diagnostic Findings CT SCAN OF THE ABDOMEN AND PELVIS WITH IV CONTRAST CLINICAL HISTORY: Upper abdominal pain COMPARISON STUDY: Abdominal radiographs dated 11/13/2021. TECHNIQUE: Following the IV administration of 93 cc of Optiray 350, CT scan of the abdomen and pelvis is performed from the lung bases to the proximal femora. Images are reviewed in the axial, sagittal, and coronal planes. IV contrast was administered without complication. A dose lowering technique was utilized adhering to the principles of ALARA. CT DOSE: 336.52 mGycm FINDINGS: Lung bases: The heart is normal in size and without pericardial effusion. The lung bases are clear. Liver: The contrast-enhanced liver is normal in size, contour, and attenuation. There is no intrahepatic biliary ductal dilatation. The hepatic veins and portal veins are patent. Gallbladder: Unremarkable. Spleen: Normal in size and attenuation. Pancreas: Unremarkable. Adrenal glands: Unremarkable. Kidneys: The contrast enhanced kidneys are normal in size and without hydronephrosis. The kidneys enhance symmetrically. There are at least 2 nonobstructing left renal calculi which measure up to 5 mm. Bilateral renal cysts measure up to 1.8 cm. Additional subcentimeter cortical hypodensities also likely represent cysts but are too small for definitive characterization. Abdominal vasculature: The abdominal aorta is normal in course and caliber. Bowel: The proximal small bowel loops are distended and fluid-filled measuring up to 3.0 cm diameter. There is a focally thick-walled bowel loop in the central pelvis on image #274. There is a transition point just proximal to this loop on image #240, the appearance is consistent with a small bowel obstruction. The distal small bowel is decompressed. There is trace interloop fluid. No pneumatosis intestinalis or portal venous gas is seen. Fecal retention is noted throughout the colon. The appendix is well-visualized and normal. Peritoneum: There is no intraperitoneal free air or abdominal ascites. Lymphadenopathy: None. Pelvic viscera: The bladder is partially decompressed and appears circumferentially thick walled. The uterus and adnexa are normal as visualized. Follicles are present in the ovaries. There is a moderate volume of free fluid in cul-de-sac. Skeletal structures: No lytic or blastic lesions are seen. Degenerative change is noted in the sacroiliac joints. IMPRESSION: 1. Findings are consistent with a small bowel obstruction. A transition point is identified involving a loop of small bowel in the right lower quadrant. 2. There is a short segment of thick-walled small bowel seen below the transition point. It is unclear if the inflamed small bowel loop represents the cause of obstruction, or if this is related to adhesions. 3. There is trace interloop fluid and a moderate volume of free fluid in the pelvis. 4. No intraperitoneal free air seen. There is no pneumatosis intestinalis or portal venous gas. 5. The bladder wall appears circumferentially thickened. Correlate with urinalysis. 6. Left-sided nephrolithiasis. 7. Additional findings as above. Code Status & VTE Plan VTE Prophylaxis Plan VTE Prophylaxis will be ordered: Yes Supervising Physician Co-Signing Physician Notes I have seen and examined the patient personally and agree with the above assessment and plan. She appears to have at least a partial small bowel obstruction with a inflamed loop of small bowel. Unclear whether this represents a gastroenteritis versus inflammatory bowel disease/Crohn's disease. We will admit her to the hospital, keep NPO. We will check labs in the morning. We will follow her closely.
[2021-11-13] MEDS ORDERED: MoRPHine SULFATE 4 MG/ML 1 ML CARP\\VIAL IV PRN (18:25)
[2021-11-13] MEDS ORDERED: MoRPHine SULFATE 2 MG/ML CARP IV PRN (18:25)
[2021-11-13] MEDS ORDERED: ONDANSETRON INJ 2 MG/ML 2 ML VIAL IV PRN (18:25)
[2021-11-13] MEDS ORDERED: PROMETHAZINE HCL 12.5 MG in SODIUM CHLORIDE 0.9% 50 ML IV PRN (18:25)
[2021-11-13] MEDS: SODIUM CHLORIDE 0.9% 1000ML 1,000 ML IV SCH (18:28)
[2021-11-14] MEDS: SODIUM CHLORIDE 0.9% 1000ML 1,000 ML IV SCH (03:34)
[2021-11-14 09:04] LABS: Basophils # (auto) 0.03 K/uL (0-0.2); Basophils % (auto) 0.5 %; Eosinophils # (auto) 0.03 K/uL (0-0.50); Eosinophils % (auto) 0.5 %; Hematocrit (blood only) 33.5 % (34.1-44.9); Immature Granulocytes # (auto) 0.01 K/uL (0.00-0.02); Immature Granulocytes % (auto) 0.2 %; Lymphocytes # (auto) 1.53 K/uL (1.2-3.4); Mean Corpuscular Hemoglobin 29.3 pg (25.0-34.0); Mean Corpuscular Hgb Conc 32.8 g/dL (32.0-36.0); Mean Corpuscular Volume 89.1 fL (80.0-100.0); Mean Platelet Volume 9.8 fL (9.4-12.3); Monocytes # (auto) 0.52 K/uL (0.24-0.82); Monocytes % (auto) 9.2 %; Neutrophils # (auto) 3.55 K/uL (1.4-6.5); Neutrophils % (auto) 62.6 %; Platelet Count 161 K/uL (130-400); RDW Coefficient of Variation 12.8 % (11.5-14.5); RDW Standard Deviation 41.6 fL (36.4-46.3); Red Blood Count 3.76 M/uL (3.93-5.22); White Blood Count 5.67 K/ul (4.8-10.8)
[2021-11-14 09:28] LABS: BUN Creatinine Ratio 15.2 (10-20); Calcium 8.2 mg/dl (8.5-10.1); Creatinine Clr Calc Pharmacy 93.7 ml/min; Est GFR (African American) 117.7 ml/min; Est GFR (Non-African American) 101.6 ml/min; Potassium 3.6 mmol/L (3.5-5.1)
[2021-11-14] MEDS ORDERED: PANTOprazole 40 MG in SYRINGE 0 ML IV SCH (11:00)
--- NOTE | 2021-11-14 12:12 | Surgery Progress Note ---
Date of Service November 14, 2021 Assessment & Plan (1) SBO (small bowel obstruction): (2) Abdominal pain: (3) Nausea and vomiting: Plan 51-year-old female presented to the emergency room with onset of abdominal pain that started last evening around 6 PM with associated chills, nausea, and [address] scan of the abdomen and pelvis showing signs of a small bowel obstruction with a short segment of thick-walled small bowel distal to a transition zone. Patient has never had any history of abdominal surgeries. Etiology of the small bowel obstruction could be infectious/inflammatory versus possible scar tissue even though she has never had any prior surgery. 11/14/2021: abdominal pain resolved no leukocytosis afebrile no n/v Plan: Advance to clear liquids continue ambulation will re-evaluate this afternoon possible discharge later this evening Dr. Ricks has seen and examined patient, agrees with above. Admission and Anticipated Discharge Date Admission Date: November 13, 2021 Supervising Physician Co-Signing Physician Notes I have seen and examined the patient personally, and agree with the above assessment plan. We will advance her diet as tolerated. She is doing much better. She will most likely be discharged to home this evening. Subjective feeling better today abdominal pain resolved no n,v passing gas had cramping pain at 2 am but self resolved and was brief Physical Exam Constitutional: WD/WN, vitals as above cooperative and comfortable; no acute distress and not ill appearing Respiratory: normal respiratory effort; no respiratory distress and no labored breathing Gastrointestinal (Abdomen): Inspection/Auscultation: abdomen normal to inspection; abdomen not distended and no abdominal surgical scar Percussion/Palpation: abdomen soft; abdomen nontender, no guarding and abdomen not rigid Skin: no rashes, warm and dry Psychiatric: A+Ox3, euthymic affect Results & Data ([facility]) Vital Signs (Past 12 Hours) Vital Signs Temp Pulse Resp BP Pulse Ox O2 Del Method 11/14/21 07:36 36.6 C 64 16 106/69 97 Room Air Laboratory Results 11/14/21 11/14/21 11/13/21 Range/Units 07:59 07:59 12:23 WBC 5.67 (4.8-10.8) K/ul RBC 3.76 L (3.93-5.22) M/uL Hgb 11.0 L D (12.0-16.0) g/dl Hct 33.5 L (34.1-44.9) % MCV 89.1 (80.0-100.0) fL MCH 29.3 (25.0-34.0) pg MCHC 32.8 (32.0-36.0) g/dL RDW Std Deviation 41.6 (36.4-46.3) fL RDW Coeff of Esperanza 12.8 (11.5-14.5) % Plt Count 161 (130-400) K/uL MPV 9.8 (9.4-12.3) fL Immature Gran % (Auto) 0.2 % Neut % (Auto) 62.6 % Lymph % (Auto) 27.0 % Isabella % (Auto) 9.2 % Eos % (Auto) 0.5 % Baso % (Auto) 0.5 % Neut # (Auto) 3.55 (1.4-6.5) K/uL Lymph # (Auto) 1.53 (1.2-3.4) K/uL Isabella # (Auto) 0.52 (0.24-0.82) K/uL Eos # (Auto) 0.03 (0-0.50) K/uL Baso # (Auto) 0.03 (0-0.2) K/uL Immature Gran # (Auto) 0.01 (0.00-0.02) K/uL Sodium 140 (136-145) mmol/L Potassium 3.6 (3.5-5.1) mmol/L Chloride 111 H (98-107) mmol/L Carbon Dioxide 25 (21-32) mmol/L Anion Gap 4 (3-11) BUN 10 (6-23) mg/dl Creatinine 0.66 (0.6-1.2) mg/dl Est Cr Clr Drug Dosing 93.7 ml/min Est GFR ( Amer) 117.7 ml/min Est GFR (Non-Af Amer) 101.6 ml/min BUN/Creatinine Ratio 15.2 (10-20) Glucose 79 (70-99(Fasting)) mg/dl Calcium 8.2 L D (8.5-10.1) mg/dl Urine WBC (Auto) (0-5) /hpf Urine RBC (Auto) (0-4) /hpf U Hyaline Cast (Auto) (0-5) /lpf U Epithel Cells (Auto) (0-5) /lpf Urine Bacteria (Auto) (Negative) Ur Renal Epithelial Cell (0-5) /lpf SARS-CoV-2, RNA, NAAT NEGATIVE (NEGATIVE) 11/13/21 Range/Units 10:55 WBC (4.8-10.8) K/ul RBC (3.93-5.22) M/uL Hgb (12.0-16.0) g/dl Hct (34.1-44.9) % MCV (80.0-100.0) fL MCH (25.0-34.0) pg MCHC (32.0-36.0) g/dL RDW Std Deviation (36.4-46.3) fL RDW Coeff of Esperanza (11.5-14.5) % Plt Count (130-400) K/uL MPV (9.4-12.3) fL Immature Gran % (Auto) % Neut % (Auto) % Lymph % (Auto) % Isabella % (Auto) % Eos % (Auto) % Baso % (Auto) % Neut # (Auto) (1.4-6.5) K/uL Lymph # (Auto) (1.2-3.4) K/uL Isabella # (Auto) (0.24-0.82) K/uL Eos # (Auto) (0-0.50) K/uL Baso # (Auto) (0-0.2) K/uL Immature Gran # (Auto) (0.00-0.02) K/uL Sodium (136-145) mmol/L Potassium (3.5-5.1) mmol/L Chloride (98-107) mmol/L Carbon Dioxide (21-32) mmol/L Anion Gap (3-11) BUN (6-23) mg/dl Creatinine (0.6-1.2) mg/dl Est Cr Clr Drug Dosing ml/min Est GFR ( Amer) ml/min Est GFR (Non-Af Amer) ml/min BUN/Creatinine Ratio (10-20) Glucose (70-99(Fasting)) mg/dl Calcium (8.5-10.1) mg/dl Urine WBC (Auto) 1-5 (0-5) /hpf Urine RBC (Auto) 0-4 (0-4) /hpf U Hyaline Cast (Auto) 10-30 H (0-5) /lpf U Epithel Cells (Auto) >30 H (0-5) /lpf Urine Bacteria (Auto) Negative (Negative) Ur Renal Epithelial Cell 0-5 (0-5) /lpf SARS-CoV-2, RNA, NAAT (NEGATIVE) (1) Nausea and vomiting Vomiting type: unspecified Qualified Code(s): R11.2 - Nausea with vomiting, unspecified (2) Abdominal pain Abdominal location: upper abdomen, unspecified Qualified Code(s): R10.10 - Upper abdominal pain, unspecified
[2021-11-14] MEDS ORDERED: ACETAMINOPHEN 325 MG TAB PO PRN (12:39)
[2021-11-14] MEDS ORDERED: Flu Vaccine (Fluarix) 0.5mL SYR (Standard Dose) IM ONE (16:00)
[2021-11-14] MEDS ORDERED: PNEUMOCOCCAL Polysaccharide Vaccine 25mcg/0.5mL vial/Syr IM ONE (16:00)
--- NOTE | 2021-11-17 08:39 | Discharge Summary ---
Date of Service November 17, 2021 Admission HPI Per Admitting Provider Sondra is a pleasant 51-year-old female who presented to the emergency room due to abdominal pain that started at 6 PM last evening with associated nausea and 4 episodes of vomiting. She did have associated chills but no documented fever. She states she was feeling well prior to this episode of pain. Never had this type of pain before. Pain seemed to escalate in severity and became severe which is why she presented to the emergency room. She states she does have a history of IBS diarrhea predominantly. Mostly lower abdominal pain associated with her IBS and this feels different. She denies of any prior abdominal surgeries, any trauma to her abdomen, any known sick contacts other than her daughter did have COVID at the beginning of this month but she has been tested and has been negative at least 5 times. No known family history of colon cancer or inflammatory bowel disease. She did have a screening colonoscopy about a year ago which was unremarkable. She denies of any blood in her stools, blood in the urine or difficulty urinating. Last bowel movement was about 2 days ago and normal for her. She is currently passing gas. Principal Diagnosis SBO Discharge Data Allergies Allergy/AdvReac Type Severity Reaction Status Date / Time Sulfa (Sulfonamide Allergy Mild rash Verified 04/29/21 16:04 Antibiotics) Consultations 11/13/21 15:37 ED Decision to Admit Stat Ordered Studies 11/13/21 14:08 CT abd pelvis IV con only Stat Hospital Course (1) SBO (small bowel obstruction): (2) Abdominal pain: (3) Nausea and vomiting: Plan Patient was admitted to hospital from emergency department for conservative management with NPO for bowel rest, IV fluids, IV pain management as needed, IV antiemetics as needed. HD # 1 patients pain was resolved and was passing flatus. No further nausea or vomiting. Diet was advanced to clear liquids. She tolerated advancement of diet slowly on hospital day # 1 up to a soft diet and was discharged home with outpatient follow-up in 1-2 weeks. Total Time Total Time Spent Total Time Spent (In Minutes): 30 minutes Discharge Plan Discharge Items Patient Disposition: Home - Self-Care Reason For Visit: SBO Discharge Diagnosis: SBO Possible infectious/inflammatory cause of the small bowel obstruction Activity: Resume your previous activity Lifting: Gradually increase as tolerated Bathing: No limitations Sexual Activity: When tolerated Exercise/Sports: Gradually increase as tolerated Driving/Machine Use: No limitations Non-emergency contact: Primary Care Provider and Surgeon Call non-emergency contact if: you have any medication questions, your pain is worsening, your pain is concerning for you and you have a fever Follow-up/Referrals: Stephon Ricks MD [Physician] - 11/28/21 8:30 am (2 weeks) Lucy Webb, DO [Primary Care Provider] - Diet: Low Fiber Addtl Attending Provider Instructions: Would recommend advancing diet as tolerated slowly and try to avoid high fiber foods for 1-2 weeks. Call surgery office at [phone] if you have any questions/concerns until your follow-up. Pending Studies at Discharge: No Stand-Alone Forms: My [facility] [employer], Smoking Cessation Medications and DC Order Prescriptions: Continued omeprazole 20 mg capsule,delayed release(DR/EC) 20 mg PO DAILY multivitamin tablet 1 tab PO DAILY Discharge Orders: Discharge Order (Routine); Ordered 11/14/21 Ordered By: Laureen Hutchison Admission Data Admit Date/Time: 11/13/21 17:02 Attending Provider: Stephon Ricks Admit Provider: Stephon Ricks Primary Care Provider: Lucy Webb Other Providers: Stephon Ricks Other Interventions: Discharge Summary Assessment (RN) Last Done: 11/14/21 14:39
== END 2021-11-14 19:29 | disposition home or self-care (01) | DRG 390 ==
LOC: ED 09:42 → 3W 17:02